=== PATIENT | male | born 1985 | race Caucasian/White ===

== ENCOUNTER 2018-03-21 10:45 | Emergency (ER) | payer OTHER ==
[~2018-03-21] VITALS: Ht 180.3 cm; Wt 157.9 kg
[~2018-03-21 10:45] MED LIST: CIPRO500 MG PO; FLAGYL500 MG PO; FLEXERIL10 MG PO; MOTRIN800 MG PO; NAPROSYN500 MG PO; VALIUM5 MG PO
[2018-03-21] MEDS ORDERED: BUPROPION HCL100 M1 PO (11:04)
[2018-03-21] MEDS ORDERED: LISINOPRIL-HCT1 EAC3 PO (11:05)
[2018-03-21 11:25] LABS: HEMATOCRIT 46.2 % (38.0-50.0); HEMOGLOBIN 16.5 G/DL (12.5-16.6); MCH 30.9 PG (29.0-34.0); MCHC 35.7 G/DL (30.0-36.0); MCV 86.5 FL (86-99); PLATELET COUNT 317 K/uL (156-360); RBC DIS.WIDTH-CV 12.6 % (11.8-14.6); RBC DIS.WIDTH-SD 39.4 % (39-53); RED BLOOD COUNT 5.34 M/uL (4.00-5.50); WHITE BLOOD COUNT 14.3 K/uL (4.1-10.2)
[2018-03-21 11:38] LABS: ALBUMIN 4.4 g/dL (3.2-4.8)
[2018-03-21 11:39] LABS: CHLORIDE 101 mEq/L (99-109); POTASSIUM 3.6 mEq/L (3.7-5.4); SODIUM 138 mEq/L (136-147)
[2018-03-21 11:41] LABS: GLUCOSE 110 mg/dL (70-99); TOTAL PROTEIN 7.7 g/dL (6.4-8.3)
[2018-03-21 11:43] LABS: TOTAL BILIRUBIN 0.5 mg/dL (0.0-1.0)
[2018-03-21 11:44] LABS: ALKALINE PHOSPHATASE 91 IU/L (3-129)
[2018-03-21 11:45] LABS: CREATININE 0.9 mg/dL (0.6-1.3); GFR ESTIMATE (CALCULATED) > 59 mL/min/ (58.99-99999)
[2018-03-21 11:46] LABS: AST (GOT) 19 IU/L (2-34); DIRECT BILIRUBIN 0.2 mg/dL (0.0-0.3); UREA NITROGEN (BUN) 18 mg/dL (9-23)
[2018-03-21 11:48] LABS: ALT (GPT) 33 IU/L (3-49); LIPASE 8 U/L (1.0-51.0)
[2018-03-21 13:55] VITALS: BP 141/85
[2018-03-21] MEDS ORDERED: PERCOCET 5/31 TABLET PO (13:59)
== END 2018-03-21 14:02 | disposition home or self-care (01) ==
LOC: EME 10:45
PROVIDERS: Emergency Medicine
DX: K80.50 Calculus of bile duct without cholangitis or cholecystitis without obstruction (principal); K57.30 Diverticulosis of large intestine without perforation or abscess without bleeding; K76.0 Fatty (change of) liver, not elsewhere classified; F17.200 Nicotine dependence, unspecified, uncomplicated; Z87.2 Personal history of diseases of the skin and subcutaneous tissue
CPT/HCPCS: 74176; 76705; 80048; 80076; 81003; 83690; 85027; 87086; 99281; 99285